=== PATIENT | male | born 1990 | race Caucasian/White ===

== ENCOUNTER 2016-10-15 13:41 | Emergency (ER) | payer SELFPAY ==
[2016-10-15 13:42] VITALS: BP 155/101; PULSE 68; RESP 15; TEMP 98.3; O2SAT 99
--- NOTE | 2016-10-15 14:19 | PD ---
Physical Exam Date Seen by Provider: October 15, 2016 Time Seen by Provider: 14:15 Narrative 25 y/o male with suspected spider bite to left upper lateral forehead with increasing swelling to forehead and both eyes over the past 3 days. No fever, or chills. No significant pain. No difficulty swallowing or breathing. Patient has been taking benadryl without significant relief. V/S Stable Awaiting Bed Placement. Data Data Last Documented VS Vital Signs Date Time Temp Pulse Resp B/P Pulse Ox O2 Delivery O2 Flow Rate FiO2 10/15/16 13:42 98.3 68 15 155/101 99 MDM Medical Record Reviewed: Yes Supervised Visit with LUZ: Yes Condition: Stable Nas Rocha October 15, 2016 14:19
[2016-10-15] MEDS ORDERED: PRED20 PO (15:17)
--- NOTE | 2016-10-15 15:17 | PD ---
HPI Chief Complaint: Bite or Sting Time Seen by Provider: 14:50 Travel History International Travel<30 days: No Contact w/Intl Traveler<30days: No Traveled to known affect area: No History of Present Illness HPI 25 y/o male with suspected spider bite to left upper lateral forehead with increasing swelling to forehead and both eyes over the past 3 days. No fever, or chills. No significant pain. No difficulty swallowing or breathing. Patient has been taking benadryl without significant relief. PFSH Past Medical History Medical History: Denies Significant Hx ?: Not Past Surgical History Surgical History: No Previous Surgery Social History Alcohol Use: No Tobacco Use: No Substance Use: No Allergies-Medications (Allergen,Severity, Reaction): Coded Allergies: Amoxicillin (Verified Allergy, Intermediate, 10/15/16) Penicillin (Verified Allergy, Intermediate, 10/15/16) Reported Meds & Prescriptions Reported Meds & Active Scripts Active No Active Prescriptions or Reported Medications Review of Systems Except as stated in HPI: all other systems reviewed are Neg Physical Exam Narrative GENERAL: Well-appearing nontoxic male. SKIN: Focused skin assessment warm/dry. Mild to moderate swelling of the forehead without erythema, or induration. HEAD: Atraumatic. Normocephalic. EYES: Pupils equal and round. No scleral icterus. No injection or drainage. ENT: No nasal bleeding or discharge. Mucous membranes pink and moist. No oropharynx swelling. NECK: Trachea midline. No JVD. CARDIOVASCULAR: Regular rate and rhythm. No murmur appreciated. RESPIRATORY: No accessory muscle use. Clear to auscultation. Breath sounds equal bilaterally. GASTROINTESTINAL: Abdomen soft, non-tender, nondistended. Hepatic and splenic margins not palpable. MUSCULOSKELETAL: No obvious deformities. No clubbing. No cyanosis. No edema. NEUROLOGICAL: Awake and alert. No obvious cranial nerve deficits. Motor grossly within normal limits. Normal speech. PSYCHIATRIC: Appropriate mood and affect; insight and judgment normal. Data Data Last Documented VS Vital Signs Date Time Temp Pulse Resp B/P Pulse Ox O2 Delivery O2 Flow Rate FiO2 10/15/16 13:42 98.3 68 15 155/101 99 MDM Medical Decision Making Medical Screen Exam Complete: Yes Emergency Medical Condition: Yes Differential Diagnosis Insect bite versus abscess versus cellulitis versus periorbital cellulitis versus localized allergic reaction Narrative Course 25-year-old male presents with chief complaint of forehead swelling after a suspected insect bite 2 days ago. He reports the area as pruritic which is relieved with Benadryl but the swelling persists. On exam there is no erythema to suggest cellulitis. The swelling is localized to the forehead. No oropharynx swelling. Plan will be to add steroids for a few days and continue OTC Benadryl. Patient is in agreement to this plan. Diagnosis Primary Impression: Insect bite Qualified Code: W57.XXXA - Insect bite, initial encounter Referrals: Primary Care Physician Patient Instructions: General Instructions, Insect Bite or Sting (ED) Additional Instructions: Continue OTC Benadryl. Return to the emergency department if he have any increase in swelling difficulty swallowing or breathing. Scripts Prednisone 20 Mg Tab40 Mg PO DAILY #10 TAB Ref 0 Take 40 mg (2 tablets) daily for 5 days Prov:Dayna Booth 10/15/16 Disposition: 01 DISCHARGE HOME Condition: Stable Dayna Booth October 15, 2016 15:17
== END 2016-10-15 15:23 | disposition home or self-care (01) ==
LOC: NEPK 13:41
DX: S00.86XA Insect bite (nonvenomous) of other part of head, initial encounter (principal); W57.XXXA Bitten or stung by nonvenomous insect and other nonvenomous arthropods, initial encounter
CPT/HCPCS: 99283

== ENCOUNTER 2016-11-16 20:16 | Emergency (ER) | payer SELFPAY ==
[~2016-11-16] VITALS: Ht 177.8 cm; Wt 105.0 kg
[~2016-11-16 20:16] MED LIST: PRED20 PO
[2016-11-16 20:18] VITALS: BP 165/102; PULSE 94; RESP 15; TEMP 98.5; O2SAT 97
[2016-11-17] MEDS ORDERED: SODIUM CHLOR 0.9% 1000 ML INJ 1,000 ML IV ONE (01:30)
--- NOTE | 2016-11-17 01:32 | PD ---
HPI Chief Complaint: Facial Pain or Swelling Time Seen by Provider: 01:05 Travel History International Travel<30 days: No Contact w/Intl Traveler<30days: No Traveled to known affect area: No History of Present Illness HPI The patient is a 26-year-old male who presents to the emergency department for left eye and facial swelling. The patient states he was bit by an insect approximately one month ago and experienced left eye periorbital edema and swelling. The patient was treated with steroids and Benadryl and his symptoms resolved. However, the patient states once a week he will develop periorbital swelling of the left facial area that will last for 2 days and then resolved. He does get mild relief with naproxen and Benadryl, however, states the swelling started earlier tonight did not resolve with Benadryl. He states the area is "no", denies any significant pain. He does note mild discomfort with movement of the EOMs to the left, but denies any visual acuity changes. He denies any fever, chills, or sweats. He denies any acute trauma to the left facial area. Symptoms are moderate, alleviated in the past with steroids and Benadryl, and no known exacerbating factors except for the initial bug bite. He does not have a primary physician. He denies any chronic medications. [facility] Past Medical History Medical History: Denies Significant Hx Past Surgical History Surgical History: No Previous Surgery Social History Alcohol Use: Yes (WEEKENDS) Tobacco Use: Yes (1 PPD) Substance Use: No Allergies-Medications (Allergen,Severity, Reaction): Coded Allergies: Amoxicillin (Verified Allergy, Intermediate, 11/17/16) Penicillin (Verified Allergy, Intermediate, 11/17/16) Reported Meds & Prescriptions Reported Meds & Active Scripts Active Review of Systems Except as stated in HPI: all other systems reviewed are Neg General / Constitutional: No: Fever, Chills Eyes: Positive: Other (as noted in history of present illness) Cardiovascular: No: Chest Pain or Discomfort Respiratory: No: Shortness of Breath Gastrointestinal: No: Nausea, Vomiting, Abdominal Pain Skin: Positive Other (as noted in the history of present illness), No Rash, No Itching Neurologic: No: Focal Abnormalities Physical Exam Narrative GENERAL: Awake, alert, pleasant 26-year-old male who appears his stated age and is in no acute respiratory distress. SKIN: Focused skin assessment warm/dry. HEAD: Atraumatic. Normocephalic. EYES: Significant left periorbital edema. I am able to open the patient's eye, the pupil is 4 mm on the left, equal, round, and reactive to light. Ecchymosis is noted. Patient is able to see fingers at a distance of 2 feet without difficulty. EOMs are intact. ENT: No nasal bleeding or discharge. Mucous membranes pink and moist. Swelling along the left periorbital area extending into the left maxilla. Left TM is translucent, left EAC is clear. NECK: Trachea midline. No JVD. CARDIOVASCULAR: Regular rate and rhythm. No murmur appreciated. RESPIRATORY: No accessory muscle use. Clear to auscultation. Breath sounds equal bilaterally. GASTROINTESTINAL: Abdomen soft, non-tender, nondistended. MUSCULOSKELETAL: No obvious deformities. No clubbing. No cyanosis. No edema. NEUROLOGICAL: Awake and alert. No obvious cranial nerve deficits. Motor grossly within normal limits. Normal speech. PSYCHIATRIC: Appropriate mood and affect; insight and judgment normal. Data Data Last Documented VS Vital Signs Date Time Temp Pulse Resp B/P Pulse Ox O2 Delivery O2 Flow Rate FiO2 11/16/16 20:18 98.5 94 15 165/102 97 Room Air Orders Complete Blood Count With Diff (11/17/16 01:21) Comprehensive Metabolic Panel (11/17/16 01:21) Westergren Sedimentation Rate (11/17/16 01:21) C-Reactive Protein (Crp) (11/17/16 01:21) Sodium Chlor 0.9% 1000 Ml Inj (Ns 1000 M (11/17/16 01:30) Ct Orbits W Iv Contrast (11/17/16 ) Iohexol 350 Inj (Omnipaque 350 Inj) (11/17/16 01:42) Clindamycin Inj (Cleocin Inj) (11/17/16 03:15) Diphenhydramine Inj (Benadryl Inj) (11/17/16 03:15) Labs Laboratory Tests Test 11/17/16 01:30 White Blood Count 14.4 TH/MM3 Red Blood Count 5.17 MIL/MM3 Hemoglobin 16.1 GM/DL Hematocrit 47.3 % Mean Corpuscular Volume 91.5 FL Mean Corpuscular Hemoglobin 31.1 PG Mean Corpuscular Hemoglobin 34.0 % Concent Red Cell Distribution Width 13.3 % Platelet Count 294 TH/MM3 Mean Platelet Volume 7.9 FL Neutrophils (%) (Auto) 55.9 % Lymphocytes (%) (Auto) 32.6 % Monocytes (%) (Auto) 6.2 % Eosinophils (%) (Auto) 4.4 % Basophils (%) (Auto) 0.9 % Neutrophils # (Auto) 8.1 TH/MM3 Lymphocytes # (Auto) 4.7 TH/MM3 Monocytes # (Auto) 0.9 TH/MM3 Eosinophils # (Auto) 0.6 TH/MM3 Basophils # (Auto) 0.1 TH/MM3 CBC Comment DIFF FINAL Differential Comment Erythrocyte Sedimentation Rate 1 mm/hr Sodium Level 140 MEQ/L Potassium Level 3.5 MEQ/L Chloride Level 106 MEQ/L Carbon Dioxide Level 26.1 MEQ/L Anion Gap 8 MEQ/L Blood Urea Nitrogen 15 MG/DL Creatinine 1.16 MG/DL Estimat Glomerular Filtration 75 ML/MIN Rate Random Glucose 119 MG/DL Calcium Level 8.7 MG/DL Total Bilirubin 0.4 MG/DL Aspartate Amino Transf 31 U/L (AST/SGOT) Alanine Aminotransferase 90 U/L (ALT/SGPT) Alkaline Phosphatase 83 U/L C-Reactive Protein 0.46 MG/DL Total Protein 7.3 GM/DL Albumin 4.2 GM/DL MDM Medical Decision Making Medical Screen Exam Complete: Yes Emergency Medical Condition: Yes Medical Record Reviewed: Yes Interpretation(s) Laboratory Tests Test 11/17/16 01:30 White Blood Count 14.4 TH/MM3 Red Blood Count 5.17 MIL/MM3 Hemoglobin 16.1 GM/DL Hematocrit 47.3 % Mean Corpuscular Volume 91.5 FL Mean Corpuscular Hemoglobin 31.1 PG Mean Corpuscular Hemoglobin 34.0 % Concent Red Cell Distribution Width 13.3 % Platelet Count 294 TH/MM3 Mean Platelet Volume 7.9 FL Neutrophils (%) (Auto) 55.9 % Lymphocytes (%) (Auto) 32.6 % Monocytes (%) (Auto) 6.2 % Eosinophils (%) (Auto) 4.4 % Basophils (%) (Auto) 0.9 % Neutrophils # (Auto) 8.1 TH/MM3 Lymphocytes # (Auto) 4.7 TH/MM3 Monocytes # (Auto) 0.9 TH/MM3 Eosinophils # (Auto) 0.6 TH/MM3 Basophils # (Auto) 0.1 TH/MM3 CBC Comment DIFF FINAL Differential Comment Erythrocyte Sedimentation Rate 1 mm/hr Sodium Level 140 MEQ/L Potassium Level 3.5 MEQ/L Chloride Level 106 MEQ/L Carbon Dioxide Level 26.1 MEQ/L Anion Gap 8 MEQ/L Blood Urea Nitrogen 15 MG/DL Creatinine 1.16 MG/DL Estimat Glomerular Filtration 75 ML/MIN Rate Random Glucose 119 MG/DL Calcium Level 8.7 MG/DL Total Bilirubin 0.4 MG/DL Aspartate Amino Transf 31 U/L (AST/SGOT) Alanine Aminotransferase 90 U/L (ALT/SGPT) Alkaline Phosphatase 83 U/L C-Reactive Protein 0.46 MG/DL Total Protein 7.3 GM/DL Albumin 4.2 GM/DL Last Impressions Orbit CT 11/17/16 0000 Signed Impressions: Service Date/Time: Saturday, November 17, 2016 01:34 - CONCLUSION: 1. Abnormal thickening of the left globe with preseptal cellulitis. Kevin Howard MD Differential Diagnosis Differential diagnosis includes allergic reaction, preseptal cellulitis, preseptal cellulitis, chemosis, maxillary sinusitis, drug reaction. Narrative Course IV was established, labs are drawn and sent, and the patient was placed on cardiac telemetry monitoring and continuous pulse oximetry monitoring. The patient had a CT of the facial bones with IV contrast ordered to evaluate for preseptal cellulitis. IV fluids were administered. White count is mildly elevated greater than 14. Sedimentation rate is normal. CT reveals preseptal cellulitis. The patient is allergic to amoxicillin/penicillin, therefore, was administered clindamycin. The differential diagnosis includes preseptal cellulitis from infection versus autoimmune reaction from allergen. However, patient has already been treated with steroid, his symptoms improved slightly but then returned. Therefore, patient will be treated with clindamycin and Benadryl, is advised to return in 48-72 hours for reevaluation. The patient agrees and understands Diagnosis Primary Impression: Preseptal cellulitis Patient Instructions: General Instructions Additional Instructions: Medications as directed. Follow-up with your primary physician. Return in 48- 72 hours for reevaluation. Benadryl every 6 hours, cool compresses to the left eye, and clindamycin as directed. Med/Other Pt SpecificInfo: Prescription(s) given Scripts Clindamycin (Cleocin)150 Mg [id number] Mg PO Q6H 10 Days Ref 0 Prov:Vladislav Cochran MD 11/17/16 Disposition: DISCHARGE HOME Condition: Stable Vladislav Cochran MD Nov 17, 2016 01:32
[2016-11-17] MEDS ORDERED: IOHEXOL 350 MG/ML 10 ML VIAL (for RAD DIAG) IV ONE (01:42)
[2016-11-17 01:43] LABS: AUTOMATED NEUTROPHIL # 8.1 TH/MM3 (1.8-7.7); BASOPHIL # 0.1 TH/MM3 (0-0.2); BASOPHIL % 0.9 % (0.0-2.0); EOSINOPHIL # 0.6 TH/MM3 (0-0.4); EOSINOPHIL % 4.4 % (0.0-4.0); HEMATOCRIT 47.3 % (39.0-51.0); HEMO FLAGS DIFF FINAL; LYMPH % 32.6 % (9.0-44.0); LYMPHOCYTE # 4.7 TH/MM3 (1.0-4.8); MEAN CELL VOLUME 91.5 FL (80.0-100.0); MEAN CORPUSCULAR HEMOGLOBIN 31.1 PG (27.0-34.0); MONO % 6.2 % (0.0-8.0); NEUT % 55.9 % (16.0-70.0); PLATELET COUNT 294 TH/MM3 (150-450); RED BLOOD COUNT 5.17 MIL/MM3 (4.50-5.90); RED CELL DISTRIBUTION WIDTH 13.3 % (11.6-17.2); WHITE BLOOD COUNT 14.4 TH/MM3 (4.0-11.0)
[2016-11-17 01:59] LABS: ALT (GPT) 90 U/L (12-78); ANION GAP 8 MEQ/L (5-15); AST (GOT) 31 U/L (15-37); BICARBONATE 26.1 MEQ/L (21.0-32.0); BLOOD UREA NITROGEN 15 MG/DL (7-18); CHLORIDE 106 MEQ/L (98-107); GLOMERULAR FILTRATION RATE 75 ML/MIN (>89); POTASSIUM 3.5 MEQ/L (3.5-5.1); SODIUM (NA) 140 MEQ/L (136-145)
[2016-11-17 02:01] LABS: ALKALINE PHOSPHATASE 83 U/L (45-117); TOTAL BILIRUBIN ADULT 0.4 MG/DL (0.2-1.0)
--- NOTE | 2016-11-17 02:07 | RADRPT ---
EXAM DATE/TIME: 11/17/2016 01:34 [facility] COMPARISON: No previous studies available for comparison. INDICATIONS : Left periorbital swelling. IV CONTRAST: 75 cc Omnipaque 350 (iohexol) IV RADIATION DOSE: 25.31 CTDIvol (mGy) MEDICAL HISTORY : None SURGICAL HISTORY : None. ENCOUNTER: Initial ACUITY: 1 week PAIN SCALE: 6/10 LOCATION: Left facial TECHNIQUE: Volumetric scanning of the orbits was performed. Using automated exposure control and adjustment of the mA and/or kV according to patient size, radiation dose was kept as low as reasonably achievable t o obtain optimal diagnostic quality images. DICOM format image data is available electronically for review and comparison. FINDINGS: PRESEPTAL: The preseptal soft tissues are normal thickness. GLOBES: The right globe is normal in shape without wall thickening. The lens is grossly intact. The left guerline be is abnormally thickened and extensive pre-septal soft tissue swelling. No post septal involvement. EXTRAOCULAR MUSCLES: Symmetric and normal thickness. ORBITAL SHETH: Intact. The greater wing of the sphenoid is intact. OPTIC NERVES: Normal size. The optic canal is not enlarged. The retroconal fat is normal in appearance. LACRIMAL GLANDS: No evidence of mass. RETROAPIACL REGION: The optic chiasm is grossly intact. The visualized portion of the cavernous sinus and brainstem is i ntact. CONCLUSION: 1. Abnormal thickening of the left globe with preseptal cellulitis. Kevin Howard MD on November 17, 2016 at 2:04 Board Certified Radiologist. This report was verified electronically.
[2016-11-17] MEDS ORDERED: diphenhydrAMINE HCL 50 MG/ML VIAL IV PUSH ONE (03:15)
[2016-11-17] MEDS ORDERED: CLINDAMYCIN INJ 600 MG in SODIUM CHLORIDE 0.9% INJ 100 ML IV ONE (03:15)
[2016-11-17] MEDS ORDERED: CLIN150 PO (03:19)
[2016-11-17 03:30] VITALS: BP 150/70
== END 2016-11-17 04:06 | disposition home or self-care (01) ==
LOC: NEPE 20:16
DX: L03.213 Periorbital cellulitis (principal); F17.200 Nicotine dependence, unspecified, uncomplicated
CPT/HCPCS: 70481; 80053; 85025; 85652; 86140; 96361; 96374; 96375; 99285; J1200; J7030; Q9967

== ENCOUNTER 2016-11-19 12:51 | Emergency (ER) | payer SELFPAY ==
[~2016-11-19] VITALS: Ht 177.8 cm; Wt 102.0 kg
[~2016-11-19 12:51] MED LIST changes: +CLIN150 PO; -PRED20 PO
[2016-11-19 12:52] VITALS: BP 150/94; PULSE 76; RESP 20; TEMP 98.3; O2SAT 98
--- NOTE | 2016-11-19 13:28 | PD ---
Physical Exam Time Seen by Provider: 13:22 Narrative 26yo M here for f/u after being seen by Dr. Cochran Dami night for facial swelling to L eye. Has been taking clindamycin. Says left eye has become slightly better, but now his r eye is swollen since yesterday. Denies fever, vomiting, airway edema, SOB. Patient seen in triage. Awaiting bed placement. VS reviewed. Data Data Last Documented VS Vital Signs Date Time Temp Pulse Resp B/P Pulse Ox O2 Delivery O2 Flow Rate FiO2 11/19/16 12:52 98.3 76 20 150/94 98 Room Air MDM Supervised Visit with LUZ: Jennifer Gage Nov 19, 2016 13:28
[2016-11-19] MEDS ORDERED: CEPH-460 PO (15:18)
--- NOTE | 2016-11-19 15:19 | PD ---
HPI Chief Complaint: Eye Problems/Injury Time Seen by Provider: 15:13 Travel History International Travel<30 days: No Contact w/Intl Traveler<30days: No Traveled to known affect area: No History of Present Illness HPI Patient is a 26-year-old male who presents emergency Department with complaint of periorbital swelling. Patient seen here in our emergency department 2 days ago with left-sided periorbital swelling. Had mild leukocytosis and a CT of the orbits that showed preseptal cellulitis but no evidence of orbital cellulitis. Patient was treated with clindamycin. He has been compliant with this. He states that the swelling to the left eye has been improving, but in the interval despite being on the clindamycin he has now having swelling to the right eye. He denies any fevers, chills, pain with eye movement or visual changes. He denies any known history of allergies, seasonal allergies, etc. PFSH Past Medical History Medical History: Denies Significant Hx Social History Alcohol Use: Yes (WEEKENDS) Tobacco Use: Yes (1 PPD) Substance Use: No Allergies-Medications (Allergen,Severity, Reaction): Coded Allergies: Amoxicillin (Verified Allergy, Intermediate, 11/19/16) Penicillin (Verified Allergy, Intermediate, 11/19/16) Reported Meds & Prescriptions Reported Meds & Active Scripts Active Keflex (Cephalexin) 500 Mg Capsule 500 Mg PO QID 7 Days Cleocin (Clindamycin HCl) 150 Mg Cap 300 Mg PO Q6H 10 Days Review of Systems Except as stated in HPI: all other systems reviewed are Neg Physical Exam Narrative GENERAL: Well-appearing male in no acute distress SKIN: Focused skin assessment warm/dry. HEAD:Normocephalic. EYES: Pupils equal and round. 3 mm. Extraocular movements intact, without pain. Mild conjunctival injection to the left eye, right eye is white and quiet. Mild periorbital swelling primarily of the superior eyelid bilaterally without significant induration. No fluctuance ENT: No nasal bleeding or discharge. Mucous membranes pink and moist. NECK: No JVD. CARDIOVASCULAR: Regular rate and rhythm. RESPIRATORY: No accessory muscle use. MUSCULOSKELETAL: Normal gait NEUROLOGICAL: Awake and alert. Normal speech. PSYCHIATRIC: Appropriate mood and affect; insight and judgment normal. Data Data Last Documented VS Vital Signs Date Time Temp Pulse Resp B/P Pulse Ox O2 Delivery O2 Flow Rate FiO2 11/19/16 12:52 98.3 76 20 150/94 98 Room Air MDM Medical Decision Making Medical Screen Exam Complete: Yes Emergency Medical Condition: Yes Medical Record Reviewed: Yes Differential Diagnosis 26-year-old male here with complaint of periorbital swelling. Differential includes preorbital cellulitis, orbital cellulitis, allergic reaction Narrative Course Patient did have CT evidence of preorbital cellulitis 2 days ago and has had interval improvement of the swelling in the left eye. Unfortunately he's had development of swelling in the right eye despite being on antibiotics. Will broaden his antibiotics to include Keflex, continue clindamycin. Clinically there is no evidence of orbital cellulitis or concerning symptoms to warrant repeat imaging or laboratory testing. Diagnosis Primary Impression: Preseptal cellulitis Referrals: [facility] as needed This is a clinic that accepts patients without health insurance, use as needed or primary care Additional Instructions: Continue clindamycin as previously prescribed. Add Keflex regimen. Return to the emergency department for the warning signs discussed. Med/Other Pt SpecificInfo: Prescription(s) given Scripts Cephalexin (Keflex)500 Mg [id number] Mg PO QID 7 Days Ref 0 Prov:Cherie Vasquez MD 11/19/16 Disposition: 01 DISCHARGE HOME Condition: Stable Cherie Vasquez MD Nov 19, 2016 15:19
== END 2016-11-19 15:29 | disposition home or self-care (01) ==
LOC: NEPD 12:51
DX: L03.213 Periorbital cellulitis (principal); F17.200 Nicotine dependence, unspecified, uncomplicated; Z79.899 Other long term (current) drug therapy
CPT/HCPCS: 99283